=== PATIENT | male | born 1965 | race Two or more races ===

== ENCOUNTER 2024-06-27 21:17 | Emergency (ER) | payer OTHER ==
[~2024-06-27] VITALS: Ht 185.4 cm; Wt 82.6 kg
[2024-06-27] MEDS ORDERED: SOD SUL-POTASS177 ML PO (22:18)
[2024-06-27] MEDS ORDERED: CITALOPRAM HBR20 MG PO (22:18)
[2024-06-27] MEDS ORDERED: ATORVASTATIN CA20 MG PO (22:18)
[2024-06-27] MEDS ORDERED: CLINDAMYCIN PHOSPHATE 150 MG/ML (300mg) IV STA (22:47)
[2024-06-27] MEDS ORDERED: CLINDAMYCIN PHOSPHATE 150 MG/ML (300mg) ONE (23:09)
[2024-06-27] MEDS ORDERED: ACETAMINOPHEN 500 MG GEL..CAP PO STA (23:23)
[2024-06-27] MEDS ORDERED: ACETAMINOPHEN 500 MG GEL..CAP PO ONE (23:25)
[2024-06-27] MEDS ORDERED: CLEOCIN HCL150 MG PO (23:31)
== END 2024-06-27 23:48 | disposition home or self-care (01) ==
LOC: ER 21:20
DX: L03.115 Cellulitis of right lower limb (principal); S90.424A Blister (nonthermal), right lesser toe(s), initial encounter
CPT/HCPCS: 96365; 99282; J3490